=== PATIENT | female | born 1970 | race Caucasian/White ===

== ENCOUNTER 2017-08-23 14:37 | Emergency (ER) | payer MEDICAID ==
[2017-08-23] MEDS ORDERED: NS 1,000 ML IV ONE (16:41)
[2017-08-23] MEDS ORDERED: ONDANSETRON 4 MG/2 ML VIAL IVP ONE (16:41)
--- NOTE | 2017-08-23 16:45 | EDPHY ---
H & P Smoking Status: Current some day smoker Time Seen by Provider: 08/23/17 16:21 HPI/ROS: CHIEF COMPLAINT: Vomiting, diarrhea HISTORY OF PRESENT ILLNESS: 47-year-old female presents to the emergency department by private vehicle with multiple episodes of vomiting and diarrhea that began about 4 o'clock this morning. The patient has a history of "stomach issues". She has been treated for H pylori in the past. She states that yesterday she was drinking alcohol and eating greasy food which she typically does not do and feels that that likely set her stomach off. She does smoke marijuana daily. She does describe diffuse abdominal pain especially the epigastric area. She denies hematemesis. He she denies blood in her stool although she does state that it appeared "dark". No fevers or chills. No chest pain or difficulty breathing. No reported trauma. No known ill contacts. REVIEW OF SYSTEMS: Constitutional: No fever, no chills. Eyes: No double or blurry vision. ENT: No sore throat. Respiratory: No cough, no shortness of breath. Cardiac: No chest pain. Gastrointestinal: Vomiting, diarrhea, abdominal pain pain Genitourinary: No dysuria. Musculoskeletal: No neck or back pain. Skin: No rashes. Neurological: No headache. (Alison,Kirti M) Past Medical/Surgical History: H pylori, smokes marijuana daily (Alison,Kirti M) Social History: Lives in [place] (Alison,Kirti M) Physical Exam: General Appearance: Alert, no distress. Afebrile. Eyes: Pupils equal and round. Extraocular motions are all intact. ENT: Mouth: Mucous membranes slightly dry appearing. Respiratory: No wheezing, rhonchi, or rales, lungs are clear to auscultation. Cardiovascular: Regular rate and rhythm. Gastrointestinal: Abdomen is soft. Nontender to palpate. No masses, rebound or guarding noted. No CVA tenderness bilaterally. Neurological: Alert and oriented x 3, cranial nerves II through XII grossly intact Skin: Warm and dry, no rashes. Musculoskeletal: Nontender to palpate along the cervical, thoracic or lumbar spine. Neck is supple. Extremities: Full range of motion and no peripheral edema. Psychiatric: Patient is oriented X 3, there is no agitation. (Alison,Kirti M) Constitutional: Initial Vital Signs Temperature (C) 36.7 C 08/23/17 14:44 Heart Rate 62 08/23/17 14:44 Respiratory Rate 18 08/23/17 14:44 Blood Pressure 122/65 H 08/23/17 14:44 O2 Sat (%) 97 08/23/17 14:44 O2 Delivery Mode Room Air Allergies/Adverse Reactions: bupropion [From Wellbutrin] Allergy (Severe, Verified 08/23/17 14:43) throat swells Home Medications: Medication Instructions Recorded Ondansetron Odt [Zofran Odt] 4 mg PO Q4PRN #8 tab 08/23/17 Medical Decision Making ED Course/Re-evaluation: 47-year-old female presents to the emergency department with multiple episodes of vomiting and diarrhea. Clinically she appears very dehydrated. An IV will be established and she will receive IV normal saline. Laboratory studies are pending. Patient has a benign abdomen. I do not think imaging studies are indicated. This was discussed with the patient who verbalized understanding and agreed. Laboratory studies are unremarkable. The patient was initially given Zofran IV fluids then required 1 mg of IV Ativan. She was sleeping and feeling much better. She was tolerating p. O. Fluids and her is comfortable taking her home. (Kirti Rsoas) Differential Diagnosis: Including but not limited to gastroenteritis, dehydration, acute appendicitis, GERD, peptic ulcer disease, Helicobacter pylori (Kirti Rosas) Other Provider: PHYSICIAN DOCUMENTATION: The patient was evaluated and managed by the Physician Charge Auditor. My co- signature indicates that I have reviewed this chart and I agree with the findings and plan of care as documented. I am the secondary supervising physician. (Carlos Enrique Martinez) - Data Points Laboratory Results: Laboratory Results 08/23/17 16:56 08/23/17 16:56 Medications Given: Discontinued Medications Sodium Chloride (Ns) 1,000 mls @ 0 mls/hr IV ONCE ONE PRN Reason: Wide Open Stop: 08/23/17 16:42 Last Admin: 08/23/17 16:56 Dose: 1,000 mls Lorazepam (Ativan Injection) 1 mg IVP EDNOW ONE Stop: 08/23/17 18:06 Last Admin: 08/23/17 18:13 Dose: 1 mg Ondansetron HCl (Zofran) 4 mg IVP EDNOW ONE Stop: 08/23/17 16:42 Last Admin: 08/23/17 16:56 Dose: 4 mg Pantoprazole Sodium (Protonix) 40 mg IVP EDNOW ONE Stop: 08/23/17 18:34 Last Admin: 08/23/17 18:53 Dose: 40 mg Departure - Departure Disposition: Home, Routine, Self-Care Clinical Impression: Acute gastroenteritis Condition: Good Instructions: Gastroenteritis (ED) Additional Instructions: Clear liquids and slowly advance diet as tolerated. You should follow up with Gastroenterology as discussed. Abdominal Pain: Return to the Emergency Department immediately for increasing pain, fever, vomiting, or if not completely better in 8-12 hours. Referrals: Eliecer Dumont MD [Medical Doctor] - As per Instructions (Grocery Specialist on-call) Prescriptions: Ondansetron Odt [Zofran Odt] 4 mg PO Q4PRN #8 tab
[2017-08-23 17:11] LABS: PLATELET COUNT 296 10^3/uL (150-400)
[2017-08-23] MEDS ORDERED: LORazepam 2 MG/ML INJ IVP ONE (18:05)
[2017-08-23] MEDS ORDERED: PANTOPRAZOLE SODIUM 40 MG VIAL IVP ONE (18:33)
[2017-08-23 20:22] VITALS: BP 93/56; PULSE 77; RESP 14; TEMP 99; O2SAT 93
== END 2017-08-23 20:21 | disposition home or self-care (01) ==
DX: K52.9 Noninfective gastroenteritis and colitis, unspecified (principal); F17.200 Nicotine dependence, unspecified, uncomplicated
CPT/HCPCS: 96374; J2060; J2405

== ENCOUNTER 2018-06-04 06:51 | Emergency (ER) | payer MEDICAID ==
[2018-06-04] MEDS ORDERED: ONDANSETRON DISINTEGRATING 4 MG TAB PO ONE (07:25)
[2018-06-04] MEDS ORDERED: KETOROLAC 30 MG/1 ML SDV IVP ONE (07:31)
[2018-06-04] MEDS ORDERED: METOCLOPRAMIDE 10 MG/2 ML VIAL IVP ONE (07:31)
[2018-06-04] MEDS ORDERED: NS 1,000 ML IV ONE (07:31)
--- NOTE | 2018-06-04 07:47 | EDPHY ---
H & P Stated Complaint: Lower abd pain vomit/diarrhea since last night Time Seen by Provider: 06/04/18 07:25 HPI/ROS: CHIEF COMPLAINT: Abdominal cramping, vomiting and diarrhea HISTORY OF PRESENT ILLNESS: Patient is a 47-year-old healthy female with a history of umbilical hernia repair many years ago. She reports that yesterday she started cramping and began her period. Then about 6 hr later she became nauseous and threw up and also began having diarrhea. She reports that several people at her work are also ill. She has not had a fever. No blood in her vomit or stool. No urinary symptoms. She denies risk of . She does have history of ovarian cysts. She describes lower abdominal pain primarily left-sided. She states that she feels like her esophagus does burn from vomiting. She states that this reminds her of when she had H pylori. Severity: Moderate Modifying factors: None REVIEW OF SYSTEMS: Constitutional: denies: chills, fever, recent illness, recent injury EENTM: denies: blurred vision, double vision, nose congestion Respiratory: denies: cough, shortness of breath Cardiac: denies: chest pain, irregular heart rate, lightheadedness, palpitations Gastrointestinal/Abdominal: See HPI Genitourinary: denies: dysuria, frequency, hematuria, pain Musculoskeletal: denies: joint pain, muscle pain Skin: denies: lesions, rash, jaundice, bruising Neurological: denies: headache, numbness, paresthesia, tingling, dizziness, weakness Hematologic/Lymphatic: denies: blood clots, easy bleeding, easy bruising Immunologic/allergic: denies: HIV/AIDS, transplant 10 systems reviewed and negative except as noted EXAM: GENERAL: Well-appearing, well-nourished and in no acute distress. HEAD: Atraumatic, normocephalic. EYES: Pupils equal round and reactive to light, extraocular movements intact, sclera anicteric, conjunctiva are normal. ENT: TMs normal, nares patent, oropharynx clear without exudates. Moist mucous membranes. NECK: Normal range of motion, supple without lymphadenopathy or JVD. LUNGS: Breath sounds clear to auscultation bilaterally and equal. No wheezes rales or rhonchi. HEART: Regular rate and rhythm without murmurs, rubs or gallops. ABDOMEN: Slight left lower quadrant tenderness, no guarding or rebound. Palpable lump not particularly tender BACK: No CVA tenderness, no spinal tenderness, step-offs or deformities EXTREMITIES: Normal range of motion, no pitting or edema. No clubbing or cyanosis. NEUROLOGICAL: Cranial nerves II through XII grossly intact. Normal speech, normal gait. 5/5 strength, normal movement in all extremities, normal sensation , normal reflexes PSYCH: Normal mood, normal affect. SKIN: Warm, dry, normal turgor, no visible rashes or lesions. Source: Patient Exam Limitations: No limitations - Personal History LMP (Females 10-55): Now - Medical/Surgical History Hx Asthma: No Hx Chronic Respiratory Disease: No Hx Diabetes: No Hx Cardiac Disease: No Hx Renal Disease: No Hx Cirrhosis: No Hx Alcoholism: No Hx HIV/AIDS: No Hx Splenectomy or Spleen Trauma: No Other PMH: chronic "nerve pain". h pylori - Family History Significant Family History: No pertinent family hx - Social History Smoking Status: Light smoker Alcohol Use: Sober Constitutional: Initial Vital Signs Temperature (C) 36.5 C 06/04/18 07:03 Respiratory Rate 16 06/04/18 07:03 Blood Pressure 115/89 H 06/04/18 07:03 O2 Sat (%) 98 06/04/18 07:03 O2 Delivery Mode Room Air Allergies/Adverse Reactions: bupropion [From Wellbutrin] Allergy (Severe, Verified 08/23/17 14:43) throat swells Home Medications: Medication Instructions Recorded Amitriptyline HCl 06/04/18 Metoclopramide [Reglan 10 mg tab 10 mg PO BID PRN 7 Days tab 06/04/18 (RX)] Medical Decision Making - Diagnostics Imaging Results: Imaging Impressions Abdomen CT 06/04/18 07:31 Impression: 1. Anterior pelvic fat edema and a tiny amount of abdominal free fluid of undetermined origin. 2. Constipation. Results discussed with Dr. wright at the at 8:47 AM. General information for patients regarding this examination can be found at [email or web address]. If you have questions or comments about this report, please contact me at [phone] (hospital) or [phone] (cell). Imaging: Discussed imaging studies w/ cadastral engineer Radiologist ED Course/Re-evaluation: 9:20 a.m. the patient feels completely better. We discussed the lab work and imaging which is reassuring. Her abdominal exam is benign. She is eager to go. She is requesting a prescription for Reglan. Differential Diagnosis: Partial list of the Differential diagnosis considered include but were not limited to; gastritis, diarrhea, dehydration , menses and although unlikely based on the history and physical exam, I also considered urinary tract infection, ovarian cyst, diverticulitis, kidney stone, appendicitis. I discussed these differential diagnoses and the plan with the patient as well as the usual and expected course. The patient understands that the diagnosis is provisional and that in medicine we are not always correct and that further workup is often warranted. Usual and customary warnings were given. All of the patient's questions were answered. The patient was instructed to return to the emergency department should the symptoms at all worsen or return, otherwise to followup with the physician as we discussed. - Data Points Laboratory Results: Laboratory Results 06/04/18 07:40 06/04/18 07:40 06/04/18 06/04/18 06/04/18 07:40 07:40 07:40 WBC RBC Hgb Hct MCV MCH MCHC RDW Plt Count MPV Neut % (Auto) Lymph % (Auto) Walsh % (Auto) Eos % (Auto) Baso % (Auto) Nucleat RBC Rel Count Absolute Neuts (auto) Absolute Lymphs (auto) Absolute Monos (auto) Absolute Eos (auto) Absolute Basos (auto) Absolute Nucleated RBC Immature Gran % Immature Gran # Sodium 138 mEq/L mEq/L (135-145) Potassium 3.8 mEq/L mEq/L (3.5-5.2) Chloride 106 mEq/L mEq/L (97-110) Carbon Dioxide 22 mEq/l mEq/l (22-31) Anion Gap 10 mEq/L mEq/L (6-14) BUN 15 mg/dL mg/dL (7-23) Creatinine 0.7 mg/dL mg/dL (0.6-1.0) Estimated GFR > 60 Glucose 131 mg/dL H mg/dL (70-100) Calcium 10.5 mg/dL H mg/dL (8.5-10.4) Total Bilirubin 1.2 mg/dL mg/dL (0.1-1.4) Conjugated Bilirubin 0.1 mg/dL mg/dL (0.0-0.5) Unconjugated Bilirubin 1.1 mg/dL mg/dL (0.0-1.1) AST 32 IU/L IU/L (14-46) ALT 27 IU/L IU/L (9-52) Alkaline Phosphatase 50 IU/L IU/L (38-126) Total Protein 7.9 g/dL g/dL (6.3-8.2) Albumin 4.8 g/dL g/dL (3.5-5.0) Lipase 113 IU/L IU/L (23-300) Beta HCG, Qual NEGATIVE Urine Color YELLOW Urine Appearance CLEAR Urine pH 8.0 H (5.0-7.5) Ur Specific [place] 1.026 (1.002-1.030) Urine Protein 2+ H (NEGATIVE) Urine Ketones 1+ H (NEGATIVE) Urine Blood 1+ H (NEGATIVE) Urine Nitrate NEGATIVE (NEGATIVE) Urine Bilirubin NEGATIVE (NEGATIVE) Urine Urobilinogen NEGATIVE EU EU (0.2-1.0) Ur Leukocyte Esterase NEGATIVE (NEGATIVE) Urine RBC 1-3 /hpf /hpf (0-3) Urine WBC 1-3 /hpf /hpf (0-3) Ur Epithelial Cells TRACE /lpf /lpf (NONE-1+) Urine Mucus TRACE /lpf /lpf (NONE-1+) Urine Glucose NEGATIVE (NEGATIVE) 06/04/18 07:40 WBC 14.18 10^3/uL H 10^3/uL (3.80-9.50) RBC 4.81 10^6/uL 10^6/uL (4.18-5.33) Hgb 14.2 g/dL g/dL (12.6-16.3) Hct 41.6 % % (38.0-47.0) MCV 86.5 fL fL (81.5-99.8) MCH 29.5 pg pg (27.9-34.1) MCHC 34.1 g/dL g/dL (32.4-36.7) RDW 15.1 % % (11.5-15.2) Plt Count 348 10^3/uL 10^3/uL (150-400) MPV 10.1 fL fL (8.7-11.7) Neut % (Auto) 86.0 % H % (39.3-74.2) Lymph % (Auto) 7.6 % L % (15.0-45.0) Walsh % (Auto) 5.4 % % (4.5-13.0) Eos % (Auto) 0.3 % L % (0.6-7.6) Baso % (Auto) 0.3 % % (0.3-1.7) Nucleat RBC Rel Count 0.0 % % (0.0-0.2) Absolute Neuts (auto) 12.19 10^3/uL H 10^3/uL (1.70-6.50) Absolute Lymphs (auto) 1.08 10^3/uL 10^3/uL (1.00-3.00) Absolute Monos (auto) 0.77 10^3/uL 10^3/uL (0.30-0.80) Absolute Eos (auto) 0.04 10^3/uL 10^3/uL (0.03-0.40) Absolute Basos (auto) 0.04 10^3/uL 10^3/uL (0.02-0.10) Absolute Nucleated RBC 0.00 10^3/uL 10^3/uL (0-0.01) Immature Gran % 0.4 % % (0.0-1.1) Immature Gran # 0.06 10^3/uL 10^3/uL (0.00-0.10) Sodium Potassium Chloride Carbon Dioxide Anion Gap BUN Creatinine Estimated GFR Glucose Calcium Total Bilirubin Conjugated Bilirubin Unconjugated Bilirubin AST ALT Alkaline Phosphatase Total Protein Albumin Lipase Beta HCG, Qual Urine Color Urine Appearance Urine pH Ur Specific [place] Urine Protein Urine Ketones Urine Blood Urine Nitrate Urine Bilirubin Urine Urobilinogen Ur Leukocyte Esterase Urine RBC Urine WBC Ur Epithelial Cells Urine Mucus Urine Glucose Medications Given: Discontinued Medications Sodium Chloride (Ns) 1,000 mls @ 0 mls/hr IV EDNOW ONE; Wide Open PRN Reason: Protocol Stop: 06/04/18 07:32 Last Admin: 06/04/18 07:55 Dose: 1,000 mls Ketorolac Tromethamine (Toradol) 15 mg IVP EDNOW ONE Stop: 06/04/18 07:32 Last Admin: 06/04/18 07:54 Dose: 15 mg Metoclopramide HCl (Reglan Injection) 10 mg IVP EDNOW ONE Stop: 06/04/18 07:32 Last Admin: 06/04/18 07:54 Dose: 10 mg Ondansetron HCl (Zofran Odt) 4 mg PO EDNOW ONE Stop: 06/04/18 07:26 Last Admin: 06/04/18 07:26 Dose: 4 mg Departure - Departure Disposition: Home, Routine, Self-Care Clinical Impression: Abdominal pain Qualifiers: Abdominal location: generalized Qualified Code(s): R10.84 - Generalized abdominal pain Diarrhea Qualifiers: Diarrhea type: infectious Qualified Code(s): A09 - Infectious gastroenteritis and colitis, unspecified Vomiting Qualifiers: Vomiting type: unspecified Vomiting Intractability: non-intractable Nausea presence: with nausea Qualified Code(s): R11.2 - Nausea with vomiting, unspecified Condition: Fair Instructions: Gastroenteritis (ED), Acute Abdominal Pain (ED) Referrals: SHAYLA COLES [Primary Care Provider] - 1 day, if not improved Prescriptions: Metoclopramide [Reglan 10 mg tab (RX)] 10 mg PO BID PRN 7 Days tab PRN Reason: *Nausea & Vomiting
[2018-06-04 08:03] LABS: PLATELET COUNT 348 10^3/uL (150-400)
[2018-06-04] MEDS ORDERED: IOPAMIDOL (ISOVUE-300) 100 ML BTL ONE (08:11)
[2018-06-04 09:30] VITALS: BP 100/63
== END 2018-06-04 09:30 | disposition home or self-care (01) ==
DX: A09 Infectious gastroenteritis and colitis, unspecified (principal); K59.00 Constipation, unspecified; E86.9 Volume depletion, unspecified
CPT/HCPCS: 96374; J1885; J2765; Q9967